=== PATIENT | female | born 1955 | race African-American/Black ===

== ENCOUNTER 2023-07-16 14:19 | Inpatient (IN) | payer OTHER ==
[~2023-07-16] VITALS: Ht 172.7 cm; Wt 149.6 kg
[2023-07-16 15:14] LABS: Basophils # (auto) 0.1 10 ^3/uL (0-0.2); Basophils % (auto) 0.8 % (0.0-2.0); Eosinophils # (auto) 0.1 10 ^3/uL (0-0.8); Eosinophils % (auto) 1.6 % (0.0-7.0); Hematocrit 40.4 % (36.0-46.0); Hemoglobin 13.1 g/dL (12.2-16.2); Lymphocytes # (auto) 1.6 10 ^3/uL (0.4-5.4); Lymphocytes % (auto) 20.4 % (10.0-50.0); Mean Corpuscular Hemoglobin 28.7 pg (28.0-32.0); Mean Corpuscular Hgb Conc. 32.4 g/dL (32.0-36.0); Mean Corpuscular Volume 88.7 fL (80.0-100.0); Monocytes # (auto) 0.7 10 ^3/uL (0-1.3); Monocytes % (auto) 9.4 % (0.0-12.0); Neutrophils # (auto) 5.2 10 ^3/uL (1.6-8.6); Neutrophils % (auto) 67.8 % (37.0-80.0); Red Blood Cells 4.55 10^6/uL (4.0-5.20); Red Cell Distribution Width 14.9 % (11.8-14.3); White Blood Cell 7.7 10^3/uL (4.4-10.8)
[2023-07-16 15:30] LABS: Alanine Aminotransferase 19 U/L (7-40); Albumin 4.5 g/dL (3.2-4.8); Alkaline Phosphatase 92 U/L (46-116); Anion Gap 8 (5-15); Aspartate Aminotransferase 15 U/L (13-40); BUN/Creatinine Ratio 13.3 (10.0-20.0); Blood Urea Nitrogen 14 mg/dL (9-23); Calcium 8.6 mg/dL (8.7-10.4); Carbon Dioxide 25 mmol/L (20-30); Chloride 104 mmol/L (98-107); Glucose 106 mg/dL (74-106); Magnesium 2.1 mg/dL (1.6-2.6); Potassium 3.9 mmol/L (3.5-5.1); Sodium 137 mmol/L (136-145)
[2023-07-16 15:31] LABS: Total Protein 7.4 g/dL (5.7-8.2)
[2023-07-16 16:03] LABS: INR 1.09 (0.9-1.15); Partial Thromboplastin Time 21.8 SEC (24.5-34.5); Prothrombin Time 11.4 sec (9.3-11.8)
[2023-07-16] MEDS ORDERED: HEPARIN SODIUM (PORCINE) 5000 UNITS/ML 1ML VIAL IV ONE ×2 (16:30→21:00)
[2023-07-16] MEDS ORDERED: IOHEXOL 350 MG/ML 100ML IJ ONE (16:36)
[2023-07-16] MEDS ORDERED: HEPARIN DRIP/D5W 100UNITS/ML 250 ML IV SCH (19:00)
[2023-07-16] MEDS: FUROSEMIDE 40 MG/4 ML VIAL IV ONE ×2 (19:58→22:04)
[2023-07-16 20:20] VITALS: PULSE 96; RESP 22; O2SAT 88
[2023-07-16 20:34] LABS: Basophils # (auto) 0.1 10 ^3/uL (0-0.2); Basophils % (auto) 0.6 % (0.0-2.0); Eosinophils # (auto) 0.2 10 ^3/uL (0-0.8); Eosinophils % (auto) 2.1 % (0.0-7.0); Hematocrit 39.9 % (36.0-46.0); Hemoglobin 13.3 g/dL (12.2-16.2); Lymphocytes # (auto) 2.1 10 ^3/uL (0.4-5.4); Lymphocytes % (auto) 24.6 % (10.0-50.0); Mean Corpuscular Hemoglobin 29.2 pg (28.0-32.0); Mean Corpuscular Hgb Conc. 33.2 g/dL (32.0-36.0); Mean Corpuscular Volume 87.7 fL (80.0-100.0); Monocytes # (auto) 0.8 10 ^3/uL (0-1.3); Monocytes % (auto) 9.5 % (0.0-12.0); Neutrophils # (auto) 5.3 10 ^3/uL (1.6-8.6); Neutrophils % (auto) 63.2 % (37.0-80.0); Nucleated Red Blood Cells % 0.1 %; Red Blood Cells 4.55 10^6/uL (4.0-5.20); Red Cell Distribution Width 14.7 % (11.8-14.3); White Blood Cell 8.4 10^3/uL (4.4-10.8)
[2023-07-16 20:52] LABS: INR 1.07 (0.9-1.15); Prothrombin Time 11.2 sec (9.3-11.8)
[2023-07-16] MEDS: HEPARIN DRIP/D5W 100UNITS/ML 250 ML IV SCH (20:53)
[2023-07-16] MEDS ORDERED: ACETAMINOPHEN 325 MG TAB PO PRN (21:30)
[2023-07-16] MEDS ORDERED: ONDANSETRON HCL 4 MG/2 ML VIAL IV PRN (21:30)
[2023-07-16 22:23] LABS: Urine Bacteria FEW /hpf (None Seen); Urine Blood Negative /uL (Negative); Urine Clarity Clear (Clear); Urine Color Yellow (Yellow); Urine Protein, UAD TRACE (Negative); Urine Urobilinogen Normal (Negative); Urine WBC 51 /hpf (0 - 5); Urine pH 5.5 (5.0-8.0)
[2023-07-16 22:44] LABS: Urine Specific Gravity > 1.050 (1.001-1.035)
[2023-07-16] MEDS: HYDROcodone-ACET 5/325MG TAB PO PRN (23:29)
[2023-07-16] MEDS ORDERED: NITROGLYCERIN 0.4 MG SL TAB SL PRN (23:45)
[2023-07-16] MEDS ORDERED: MORPHINE SULFATE INJ 2 MG/ml SYRG IV PRN (23:45)
[2023-07-17] MEDS: SODIUM CHLORIDE 0.9% 1,000 ML IV SCH ×2 (01:39→14:11)
[2023-07-17] MEDS ORDERED: cefTRIAXone 1GM/50ML D5W 50 ML IV ONE (02:45)
[2023-07-17 03:39] LABS: Basophils # (auto) 0.1 10 ^3/uL (0-0.2); Basophils % (auto) 1.8 % (0.0-2.0); Eosinophils # (auto) 0.1 10 ^3/uL (0-0.8); Eosinophils % (auto) 1.7 % (0.0-7.0); Hematocrit 38.1 % (36.0-46.0); Hemoglobin 12.5 g/dL (12.2-16.2); Lymphocytes # (auto) 2.1 10 ^3/uL (0.4-5.4); Lymphocytes % (auto) 28.2 % (10.0-50.0); Mean Corpuscular Hemoglobin 28.8 pg (28.0-32.0); Mean Corpuscular Hgb Conc. 32.8 g/dL (32.0-36.0); Mean Corpuscular Volume 87.8 fL (80.0-100.0); Monocytes # (auto) 0.6 10 ^3/uL (0-1.3); Monocytes % (auto) 7.9 % (0.0-12.0); Neutrophils # (auto) 4.5 10 ^3/uL (1.6-8.6); Neutrophils % (auto) 60.4 % (37.0-80.0); Nucleated Red Blood Cells % 0.2 %; Red Blood Cells 4.34 10^6/uL (4.0-5.20); Red Cell Distribution Width 14.8 % (11.8-14.3); White Blood Cell 7.5 10^3/uL (4.4-10.8)
[2023-07-17 04:17] LABS: Alanine Aminotransferase 16 U/L (7-40); Albumin 4.2 g/dL (3.2-4.8); Alkaline Phosphatase 81 U/L (46-116); Anion Gap 9 (5-15); Aspartate Aminotransferase 16 U/L (13-40); BUN/Creatinine Ratio 7.6 (10.0-20.0); Bilirubin, Total 1.1 mg/dL (0.2-1.0); Blood Urea Nitrogen 7 mg/dL (9-23); Calcium 8.5 mg/dL (8.7-10.4); Carbon Dioxide 24 mmol/L (20-30); Chloride 103 mmol/L (98-107); Glucose 114 mg/dL (74-106); Potassium 3.6 mmol/L (3.5-5.1); Sodium 136 mmol/L (136-145); Total Protein 7.3 g/dL (5.7-8.2)
[2023-07-17 04:36] LABS: INR 1.17 (0.9-1.15); Prothrombin Time 12.2 sec (9.3-11.8)
[2023-07-17 04:57] LABS: Partial Thromboplastin Time 112.5 SEC (24.5-34.5)
[2023-07-17 07:20] VITALS: PULSE 85; RESP 17; O2SAT 99
[2023-07-17] MEDS: HEPARIN DRIP/D5W 100UNITS/ML 250 ML IV SCH ×2 (10:36→16:39)
[2023-07-17 15:25] LABS: INR 1.13 (0.9-1.15)
[2023-07-17 15:27] LABS: Partial Thromboplastin Time 114.9 SEC (24.5-34.5)
[2023-07-17] MEDS: HYDROcodone-ACET 5/325MG TAB PO PRN ×2 (15:32→21:23)
[2023-07-17 17:50] VITALS: BP 140/75; PULSE 96; RESP 20; TEMP 98; O2SAT 97
[2023-07-17 19:20] VITALS: O2SAT 98
[2023-07-17 20:00] VITALS: PULSE 92; O2SAT 94
[2023-07-17 22:00] VITALS: BP 154/93; PULSE 102; RESP 16; TEMP 97.5; O2SAT 94
[2023-07-17 23:07] LABS: INR 1.11 (0.9-1.15); Partial Thromboplastin Time 48.7 SEC (24.5-34.5); Prothrombin Time 11.6 sec (9.3-11.8)
[2023-07-18] VITALS (8 sets, daily range): BP systolic 97–149; BP diastolic 46–89; PULSE 72–97; RESP 16–22; TEMP 97–98.3; O2SAT 92–100
[2023-07-18] MEDS: HYDROcodone-ACET 5/325MG TAB PO PRN ×4 (05:12→21:52)
[2023-07-18] MEDS: SODIUM CHLORIDE 0.9% 1,000 ML IV SCH (06:50)
[2023-07-18 07:14] LABS: INR 1.08 (0.9-1.15); Partial Thromboplastin Time 41.3 SEC (24.5-34.5); Prothrombin Time 11.3 sec (9.3-11.8)
[2023-07-18] MEDS: HEPARIN DRIP/D5W 100UNITS/ML 250 ML IV SCH (08:27)
[2023-07-18] MEDS: DOCUSATE SOD 100 MG CAP PO PRN (09:34)
[2023-07-18] MEDS: cefTRIAXone 1GM/50ML D5W 50 ML IV SCH (11:30)
[2023-07-18] MEDS ORDERED: FUROSEMIDE 40 MG/4 ML VIAL IV ONE (11:45)
[2023-07-18] MEDS ORDERED: CARVEDILOL 12.5 MG TAB PO ONE (11:45)
[2023-07-18] MEDS ORDERED: POTASSIUM CHL 20 Meq TABLET PO ONE (12:15)
[2023-07-18] MEDS: GABAPENTIN 100 MG CAP PO SCH ×2 (12:32→21:49)
[2023-07-18 15:29] LABS: Basophils # (auto) 0.1 10 ^3/uL (0-0.2); Basophils % (auto) 0.7 % (0.0-2.0); Eosinophils # (auto) 0.2 10 ^3/uL (0-0.8); Eosinophils % (auto) 2.5 % (0.0-7.0); Hematocrit 37.1 % (36.0-46.0); Hemoglobin 12.3 g/dL (12.2-16.2); Lymphocytes # (auto) 1.8 10 ^3/uL (0.4-5.4); Lymphocytes % (auto) 25.5 % (10.0-50.0); Mean Corpuscular Hemoglobin 29.2 pg (28.0-32.0); Mean Corpuscular Hgb Conc. 33.2 g/dL (32.0-36.0); Mean Corpuscular Volume 88.2 fL (80.0-100.0); Monocytes # (auto) 0.6 10 ^3/uL (0-1.3); Monocytes % (auto) 8.3 % (0.0-12.0); Neutrophils # (auto) 4.4 10 ^3/uL (1.6-8.6); Nucleated Red Blood Cells % 0.1 %; Red Blood Cells 4.21 10^6/uL (4.0-5.20); Red Cell Distribution Width 14.4 % (11.8-14.3)
[2023-07-18] MEDS: RIVAROXABAN 20 MG TAB PO SCH (17:29)
[2023-07-18] MEDS: FUROSEMIDE 40 MG/4 ML VIAL IV SCH (17:38)
[2023-07-18] MEDS: CARVEDILOL 12.5 MG TAB PO SCH (21:49)
[2023-07-19] VITALS (7 sets, daily range): BP systolic 102–136; BP diastolic 50–89; PULSE 65–88; RESP 16–20; TEMP 97.3–98.2; O2SAT 95–99
[2023-07-19] MEDS: GABAPENTIN 100 MG CAP PO SCH ×3 (06:14→20:59)
[2023-07-19] MEDS: FUROSEMIDE 40 MG/4 ML VIAL IV SCH ×2 (06:14→17:25)
[2023-07-19] MEDS: HYDROcodone-ACET 5/325MG TAB PO PRN ×2 (06:17→23:55)
[2023-07-19] MEDS: DOCUSATE SOD 100 MG CAP PO PRN ×2 (09:36→23:56)
[2023-07-19] MEDS: CARVEDILOL 12.5 MG TAB PO SCH (09:36)
[2023-07-19] MEDS: cefTRIAXone 1GM/50ML D5W 50 ML IV SCH (09:38)
[2023-07-19 09:47] LABS: Carbon Dioxide 29 mmol/L (20-30)
[2023-07-19 09:48] LABS: Calcium 8.6 mg/dL (8.5-10.1)
[2023-07-19 09:53] LABS: Glucose 141 mg/dL (74-106); Triglycerides 120 mg/dL (< 150)
[2023-07-19 09:54] LABS: LDL Cholesterol 91 mg/dL (< 100)
[2023-07-19 09:55] LABS: Cholesterol 160 mg/dL (< 200); HDL Cholesterol 48 mg/dL (40-59)
[2023-07-19 09:59] LABS: Anion Gap 6 (5-15); BUN/Creatinine Ratio 9.5 (10.0-20.0); Blood Urea Nitrogen 9 mg/dL (9-23); Chloride 100 mmol/L (98-107); Sodium 135 mmol/L (136-145)
[2023-07-19 10:27] LABS: Potassium 4.2 mmol/L (3.5-5.1)
[2023-07-19 11:33] LABS: Magnesium 1.9 mg/dL (1.6-2.6)
[2023-07-19] MEDS: RIVAROXABAN 20 MG TAB PO SCH (17:25)
[2023-07-19] MEDS: CARVEDILOL 3.125 MG TAB PO SCH (20:59)
[2023-07-19] MEDS: CYCLOBENZAPRINE HCL 10 MG TAB PO PRN (20:59)
[2023-07-20] VITALS (7 sets, daily range): BP systolic 112–144; BP diastolic 50–87; PULSE 72–78; RESP 16–20; TEMP 97.7–98.3; O2SAT 96–99
[2023-07-20 06:16] LABS: Chloride 99 mmol/L (98-107); Potassium 3.7 mmol/L (3.5-5.1); Sodium 135 mmol/L (136-145)
[2023-07-20 06:17] LABS: Anion Gap 6 (5-15); Calcium 8.7 mg/dL (8.5-10.1); Carbon Dioxide 30 mmol/L (20-30)
[2023-07-20 06:22] LABS: BUN/Creatinine Ratio 11.5 (10.0-20.0); Blood Urea Nitrogen 10 mg/dL (9-23); Glucose 91 mg/dL (74-106)
[2023-07-20] MEDS: FUROSEMIDE 40 MG/4 ML VIAL IV SCH ×2 (06:24→18:50)
[2023-07-20] MEDS: GABAPENTIN 100 MG CAP PO SCH ×2 (06:25→13:29)
[2023-07-20] MEDS: HYDROcodone-ACET 5/325MG TAB PO PRN ×2 (06:26→20:25)
[2023-07-20] MEDS: CARVEDILOL 3.125 MG TAB PO SCH (09:13)
[2023-07-20] MEDS: cefTRIAXone 1GM/50ML D5W 50 ML IV SCH (09:19)
[2023-07-20] MEDS: RIVAROXABAN 20 MG TAB PO SCH (18:50)
[2023-07-20] MEDS: CYCLOBENZAPRINE HCL 10 MG TAB PO PRN (20:25)
[2023-07-21] VITALS (7 sets, daily range): BP systolic 114–148; BP diastolic 57–88; PULSE 73–87; RESP 16–20; TEMP 97.4–98.5; O2SAT 96–98
[2023-07-21] MEDS: GABAPENTIN 100 MG CAP PO SCH ×4 (01:26→21:49)
[2023-07-21] MEDS: CARVEDILOL 3.125 MG TAB PO SCH ×3 (01:27→21:49)
[2023-07-21] MEDS: FUROSEMIDE 40 MG/4 ML VIAL IV SCH ×2 (06:22→18:14)
[2023-07-21] MEDS: cefTRIAXone 1GM/50ML D5W 50 ML IV SCH (09:57)
[2023-07-21] MEDS ORDERED: CARV6.25 PO (12:02)
[2023-07-21] MEDS ORDERED: CEPH500T PO (12:02)
[2023-07-21] MEDS ORDERED: FURO1TAB31 PO (12:02)
[2023-07-21] MEDS ORDERED: HYDR-4902 PO (12:02)
[2023-07-21] MEDS ORDERED: RIV20T PO (12:02)
[2023-07-21] MEDS ORDERED: TRAZ-227 PO (12:02)
[2023-07-21] MEDS ORDERED: GABA-1250 PO (12:02)
[2023-07-21 16:32] LABS: Base Excess 2.4 mmol/L (-2.0-2.0)
[2023-07-21] MEDS: RIVAROXABAN 20 MG TAB PO SCH (18:07)
[2023-07-21] MEDS: HYDROcodone-ACET 5/325MG TAB PO PRN (20:08)
[2023-07-21] MEDS: CYCLOBENZAPRINE HCL 10 MG TAB PO PRN (20:08)
[2023-07-21] MEDS ORDERED: MELATONIN 5 MG TAB PO ONE (23:45)
[2023-07-22] VITALS (7 sets, daily range): BP systolic 101–149; BP diastolic 46–77; PULSE 71–83; RESP 16–20; TEMP 97.3–98.4; O2SAT 97–100
[2023-07-22] MEDS ORDERED: MELATONIN 5 MG TAB ONE
[2023-07-22] MEDS: HYDROcodone-ACET 5/325MG TAB PO PRN ×6 (00:03→22:53)
[2023-07-22] MEDS: GABAPENTIN 100 MG CAP PO SCH ×3 (05:01→22:46)
[2023-07-22] MEDS: FUROSEMIDE 40 MG/4 ML VIAL IV SCH ×2 (05:02→18:40)
[2023-07-22] MEDS: CYCLOBENZAPRINE HCL 10 MG TAB PO PRN ×2 (09:42→18:36)
[2023-07-22] MEDS: DOCUSATE SOD 100 MG CAP PO PRN (09:42)
[2023-07-22] MEDS: cefTRIAXone 1GM/50ML D5W 50 ML IV SCH (09:42)
[2023-07-22] MEDS: CARVEDILOL 3.125 MG TAB PO SCH ×2 (09:43→22:46)
[2023-07-22] MEDS: RIVAROXABAN 20 MG TAB PO SCH (18:36)
[2023-07-23] VITALS (8 sets, daily range): BP systolic 108–162; BP diastolic 59–96; PULSE 65–79; RESP 16–20; TEMP 97.1–97.8; O2SAT 94–100
[2023-07-23] MEDS: HYDROcodone-ACET 5/325MG TAB PO PRN ×4 (04:38→21:00)
[2023-07-23] MEDS: CYCLOBENZAPRINE HCL 10 MG TAB PO PRN ×2 (04:38→21:00)
[2023-07-23] MEDS: FUROSEMIDE 40 MG/4 ML VIAL IV SCH ×2 (06:05→17:56)
[2023-07-23] MEDS: GABAPENTIN 100 MG CAP PO SCH ×3 (06:05→21:58)
[2023-07-23] MEDS: cefTRIAXone 1GM/50ML D5W 50 ML IV SCH (09:06)
[2023-07-23] MEDS: CARVEDILOL 3.125 MG TAB PO SCH ×2 (09:14→21:58)
[2023-07-23] MEDS ORDERED: RIVA20TA PO (16:58)
[2023-07-23] MEDS ORDERED: TRAZ-181 PO (16:58)
[2023-07-23] MEDS ORDERED: FURO1TAB31 PO (16:58)
[2023-07-23] MEDS ORDERED: CARV6.25 PO (16:58)
[2023-07-23] MEDS ORDERED: CEPH500C PO (16:58)
[2023-07-23] MEDS: RIVAROXABAN 20 MG TAB PO SCH (17:57)
[2023-07-24] MEDS: HYDROcodone-ACET 5/325MG TAB PO PRN ×3 (00:36→21:57)
[2023-07-24 05:00] VITALS: BP 120/58; PULSE 63; RESP 17; TEMP 98.1; O2SAT 99
[2023-07-24] MEDS: GABAPENTIN 100 MG CAP PO SCH ×3 (05:48→21:57)
[2023-07-24] MEDS: CYCLOBENZAPRINE HCL 10 MG TAB PO PRN ×2 (05:48→19:58)
[2023-07-24] MEDS: FUROSEMIDE 40 MG/4 ML VIAL IV SCH ×2 (05:48→18:32)
[2023-07-24 08:00] VITALS: PULSE 71; RESP 22; O2SAT 96
[2023-07-24] MEDS: cefTRIAXone 1GM/50ML D5W 50 ML IV SCH (08:58)
[2023-07-24] MEDS: CARVEDILOL 3.125 MG TAB PO SCH ×2 (08:59→21:57)
[2023-07-24 09:00] VITALS: BP 124/69; PULSE 63; RESP 22; TEMP 97.7; O2SAT 96
[2023-07-24 13:00] VITALS: BP 101/55; PULSE 82; RESP 20; TEMP 97.6; O2SAT 99
[2023-07-24 17:00] VITALS: BP 136/85; PULSE 80; RESP 18; TEMP 97.7; O2SAT 94
[2023-07-24] MEDS: RIVAROXABAN 20 MG TAB PO SCH (18:32)
[2023-07-24 20:00] VITALS: PULSE 72; PULSE 76; RESP 18; O2SAT 98
[2023-07-24] MEDS: MELATONIN 5 MG TAB PO SCH (23:09)
[2023-07-25] VITALS (7 sets, daily range): BP systolic 111–128; BP diastolic 56–75; PULSE 68–83; RESP 16–20; TEMP 97.1–98.2; O2SAT 96–100
[2023-07-25] MEDS: GABAPENTIN 100 MG CAP PO SCH ×3 (06:15→23:13)
[2023-07-25] MEDS: CYCLOBENZAPRINE HCL 10 MG TAB PO PRN (06:15)
[2023-07-25] MEDS: FUROSEMIDE 40 MG/4 ML VIAL IV SCH ×2 (06:15→18:28)
[2023-07-25] MEDS: cefTRIAXone 1GM/50ML D5W 50 ML IV SCH (08:57)
[2023-07-25] MEDS: CARVEDILOL 3.125 MG TAB PO SCH ×2 (13:37→23:15)
[2023-07-25] MEDS: RIVAROXABAN 20 MG TAB PO SCH (18:27)
[2023-07-25] MEDS ORDERED: MELATONIN 5 MG TAB PO ONE ×2 (22:00)
[2023-07-25] MEDS ORDERED: MELATONIN 5 MG TAB ONE (23:09)
[2023-07-25] MEDS: HYDROcodone-ACET 5/325MG TAB PO PRN (23:14)
[2023-07-25] MEDS: MELATONIN 5 MG TAB PO SCH (23:19)
[2023-07-26 05:00] VITALS: BP 115/59; PULSE 65; RESP 20; TEMP 97.9; O2SAT 99
[2023-07-26] MEDS: FUROSEMIDE 40 MG/4 ML VIAL IV SCH (06:32)
[2023-07-26] MEDS: GABAPENTIN 100 MG CAP PO SCH ×2 (06:34→12:57)
[2023-07-26 09:00] VITALS: BP 140/87; PULSE 70; RESP 18; TEMP 97.5; O2SAT 97
[2023-07-26] MEDS: CARVEDILOL 3.125 MG TAB PO SCH (10:08)
[2023-07-26] MEDS: cefTRIAXone 1GM/50ML D5W 50 ML IV SCH (10:08)
[2023-07-26 13:00] VITALS: BP 139/70; PULSE 74; RESP 18; TEMP 97; O2SAT 98
[2023-07-26 17:00] VITALS: BP 136/70; PULSE 78; RESP 20; TEMP 97.8; O2SAT 100
[2023-07-26] MEDS ORDERED: MELATONIN 5 MG TAB PO ONE (22:00)
== END 2023-07-26 18:12 | disposition home or self-care (01) | DRG 133 ==
LOC: ER 14:19 → TELE 23:33 → TELE-WESTW 07-17 17:58
PROVIDERS: ADMIT Nurse Practitioner Family; ATTEND Internal Medicine
DX: J96.21 Acute and chronic respiratory failure with hypoxia (principal); I26.99 Other pulmonary embolism without acute cor pulmonale; I50.33 Acute on chronic diastolic (congestive) heart failure; I82.401 Acute embolism and thrombosis of unspecified deep veins of right lower extremity; I42.9 Cardiomyopathy, unspecified; Z68.43 Body mass index [BMI] 50.0-59.9, adult; I82.412 Acute embolism and thrombosis of left femoral vein; E66.01 Morbid (severe) obesity due to excess calories; I82.432 Acute embolism and thrombosis of left popliteal vein; N39.0 Urinary tract infection, site not specified; I11.0 Hypertensive heart disease with heart failure; I25.2 Old myocardial infarction; Z80.3 Family history of malignant neoplasm of breast; Z79.01 Long term (current) use of anticoagulants; Z82.49 Family history of ischemic heart disease and other diseases of the circulatory system; Z83.3 Family history of diabetes mellitus; Z95.828 Presence of other vascular implants and grafts
CPT/HCPCS: 36415; 36600; 71045; 71275; 80048; 80053; 80061; 81001; 82805; 83735; 83880; 84443; 84484; 85025; 85379; 85610; 85730; 87086; 87088; 87186; 93005; 93306; 93970; 96365; 96375; 97110; 97116; 97163; 97530; G0378; J0696